=== PATIENT | female | born 1960 | race Caucasian/White ===

== ENCOUNTER 2020-06-09 16:52 | Emergency (ER) | payer MEDICAID, OTHER ==
[~2020-06-09] VITALS: Ht 152.4 cm; Wt 61.2 kg
--- NOTE | 2020-06-09 17:06 | NUR ---
PT IS IN ROOM #2A. DR NARVAEZ EVALUATED THE PT.
[2020-06-09] MEDS ORDERED: ACETAMINOPHEN 325 MG TABLET ONE (17:12)
[2020-06-09] MEDS ORDERED: ACETAMINOPHEN 325 MG TABLET PO ONE (17:15)
--- NOTE | 2020-06-09 17:24 | NUR ---
pt was d/c'D to home. d/c instructions given to the pt by dr torres.
[2020-06-09 17:25] VITALS: BP 142/77
== END 2020-06-09 17:43 | disposition home or self-care (01) ==
LOC: ER 16:52
DX: S67.190A Crushing injury of right index finger, initial encounter (principal); S62.600A Fracture of unspecified phalanx of right index finger, initial encounter for closed fracture; V48.4XXA Person boarding or alighting a car injured in noncollision transport accident, initial encounter; Y92.89 Other specified places as the place of occurrence of the external cause
CPT/HCPCS: 73140; A4663